=== PATIENT | female | born 1955 | race Caucasian/White ===

== ENCOUNTER 2019-02-12 12:25 | Emergency (ER) | payer OTHER ==
[~2019-02-12] VITALS: Ht 152.4 cm; Wt 60.8 kg
[2019-02-12] MEDS ORDERED: CARDIZEM60 MG (12:36)
[2019-02-12] MEDS ORDERED: SIMVASTATIN40 MG (12:36)
[2019-02-12] MEDS ORDERED: CLONAZEPAM1 M1 (12:37)
[2019-02-12] MEDS ORDERED: MECLIZINE HCL25 MG PO (17:21)
[2019-02-12] MEDS ORDERED: KETO10TA2 PO (17:21)
== END 2019-02-12 18:26 | disposition home or self-care (01) ==
LOC: ER 12:25
DX: R42 Dizziness and giddiness (principal)

== ENCOUNTER 2019-02-17 11:22 | Emergency (ER) | payer OTHER ==
[~2019-02-17] VITALS: Ht 149.9 cm; Wt 58.1 kg
[~2019-02-17 11:22] MED LIST: CARDIZEM60 MG; CLONAZEPAM1 M1; KETO10TA2 PO; MECLIZINE HCL25 MG PO; SIMVASTATIN40 MG
[2019-02-17] MEDS ORDERED: TOLTERODINE TART4 MG (11:52)
== END 2019-02-17 13:37 | disposition home or self-care (01) ==
LOC: ER 11:22 → CPU-OBS 11:43 → ER 11:43
DX: R07.89 Other chest pain (principal); R06.02 Shortness of breath

== ENCOUNTER 2025-01-06 07:40 | Emergency (ER) | payer OTHER ==
[~2025-01-06] VITALS: Ht 149.9 cm; Wt 59.0 kg
[~2025-01-06 07:40] MED LIST changes: +TOLTERODINE TART4 MG
[2025-01-06] MEDS ORDERED: CLONAZEPAM0.5 M1 (08:17)
[2025-01-06] MEDS ORDERED: BARIUM SULFATE 450 ML ORAL.SUSP PO ONE (09:06)
[2025-01-06] MEDS ORDERED: FAMOTIDINE/PF 20 MG/2 ML VIAL ONE (09:22)
[2025-01-06] MEDS ORDERED: ONDANSETRON HCL 2 MG/ML VIAL ONE (09:22)
[2025-01-06 09:43] LABS: URINE APPEARANCE Clear; URINE BILIRRUBIN Moderate (NEGATIVE); URINE BLOOD Moderate; URINE COLOR Orange; URINE LEUKOCYTE Small; URINE NITRATE Positive
[2025-01-06 09:45] LABS: URINE BACTERIA 3141.9 uL (0.0-1933); URINE CAST 1.76 uL (0.0-1.40); URINE EPITHELIAL CELLS 63.3 uL (0.0-38.8); URINE RBC 148.4 uL (0.0-20.8); URINE WBC 38.7 uL (0.0-23.2)
[2025-01-06 09:50] LABS: URINE GLUCOSE >=1000 MG/DL (NEGATIVE); URINE KETONE 80 (NEGATIVE); URINE PROTEIN 100 (NEGATIVE)
[2025-01-06 09:54] LABS: BASO % 0.2 % (0.1-1.2); HEMATOCRIT 47.9 % (34.1-44.9); HEMOGLOBIN 15.7 g/dL (11.2-15.7); LYMPH # 1.11 (1.18-3.74); LYMPH % 5.8 % (19.3-53.1); MEAN CORPUSCULAR HEMOGLOBIN 27.2 pg (25.6-32.2); MONO # 0.96 (0.24-0.82); NEUT # 17.03 (1.56-6.13); NEUT % 88.7 % (34.0-71.1); PLATELET COUNT 283 K/uL (163-369); RED BLOOD COUNT 5.77 M/uL (3.93-5.22); RED CELL DISTRIBUTION WIDTH 14.7 % (11.6-14.4)
[2025-01-06 09:58] LABS: URINE CRYSTALS FEW /HPF
[2025-01-06 09:59] LABS: URINE MUCUS SCANT
[2025-01-06 10:18] LABS: ALBUMIN 3.8 gm/dL (3.4-5.0); BILIRUBIN TOTAL 0.92 mg/dL (0.3-1.2); BILIRUBIN,CONJUGATED 0.28 mg/dL (0.0-0.2); BILIRUBIN,UNCONJUGATED 0.64 mg/dL (0.0-0.6); CALCIUM 9.6 mg/dL (8.5-10.1); CREATININE SERUM 0.89 mg/dL (0.55-1.02); GFR 62.7; GLOBULINA 4.8 G/DL (2.4-3.5); POTASSIUM 3.87 mEq/L (3.5-5.1); TOTAL PROTEIN 8.6 gm/dL (6.4-8.2)
[2025-01-06 10:22] LABS: COVID-19 AG NEGATIVE (NEGATIVE)
[2025-01-06 10:23] LABS: INFLUENZA A AG NEGATIVE (NEGATIVE); INFLUENZA B AG NEGATIVE (NEGATIVE)
[2025-01-06] MEDS ORDERED: PIPERACILLIN/TAZOBACTAM SODIUM 3.375 GM VIAL IV ONE ×2 (13:30→13:37)
[2025-01-06] MEDS ORDERED: MORPHINE SULFATE 2 MG/ML SYRINGE IV ONE (16:15)
[2025-01-06] MEDS ORDERED: MAGNESIUM HYDROXIDE 400 MG/5 ML ML PO ONE (17:30)
[2025-01-06] MEDS ORDERED: LACTULOSE 20 G/30 ML BLIST.PACK PO ONE (17:30)
[2025-01-06] MEDS ORDERED: MINERAL OIL 30 ML BLIST.PACK PO ONE (17:30)
[2025-01-06] MEDS ORDERED: MAGNESIUM HYDROXIDE 30 ML BLIST.PACK PO ONE (17:38)
[2025-01-06] MEDS ORDERED: LACTULOSE 20 G/30 ML BLIST.PACK ONE (17:38)
[2025-01-06] MEDS ORDERED: MINERAL OIL 30 ML BLIST.PACK ONE (17:38)
[2025-01-06] MEDS ORDERED: SURFAK240 M1 PO (18:15)
[2025-01-06] MEDS ORDERED: PROBIOTIC1 EAC2 PO (18:15)
== END 2025-01-06 20:15 | disposition home or self-care (01) ==
LOC: ER 07:40
PROVIDERS: Emergency Medicine
DX: R10.9 Unspecified abdominal pain (principal); K59.09 Other constipation; E11.9 Type 2 diabetes mellitus without complications; Z20.822 Contact with and (suspected) exposure to COVID-19
CPT/HCPCS: 36415; 74177; 96365; 99284; J2543; J3475; Q9965